=== PATIENT | female | born 1945 | race Hispanic/Latino ===

== ENCOUNTER 2018-11-17 13:37 | Outpatient (CLI) | payer MEDICARE, OTHER ==
--- NOTE | 2018-11-17 15:33 | ULT ---
LEFT BREAST SONOGRAM LIMITED: HISTORY: Left breast lump. FINDINGS: Sonographic evaluation of the lateral aspect left breast in the region of palpable concern reveals no solid or cystic masses. There are scattered fibroglandular densities. IMPRESSION: BIRADS category 2. Benign findings. Please see separate detailed report regarding diagnostic mammog rudolph performed on the same date. POS: [facility]
== END 2018-11-17 13:38 | disposition home or self-care (01) ==
LOC: BICMAMMO 13:37
PROVIDERS: ATTEND Family Medicine
DX: N63.20 Unspecified lump in the left breast, unspecified quadrant (principal); R92.1 Mammographic calcification found on diagnostic imaging of breast
CPT/HCPCS: 76642; 77066; G0279

== ENCOUNTER 2019-03-19 08:37 | Outpatient (CLI) | payer MEDICARE, OTHER ==
--- NOTE | 2019-03-19 09:51 | ULT ---
RENAL ULTRASOUND COMPLETE INCLUDING VASCULAR DUPLEX WITH COLOR AND SPECTRAL DOPPLER IMAGING: HISTORY: Essential hypertension. FINDINGS: The right kidney measures 8.8 x 4.1 x 4.1 cm. The left kidney measures 9.3 x 5.0 x 4.9 cm with a borderline prominent extrarenal pelvis but without evidence for acute hydronephrosis. No perinephric process. Vascular duplex with color and spectral Doppler imaging demonstrates increased peak systolic velocity in the left renal artery up to 151 cm/s. The right and left renal artery/aortic ratios are within n ormal limits with the left resistive index/aortic ratio being somewhat low. The right resistive indices are very low. Left resistive indices are borderline high. IMPRESSION: No evidence for significant renal mass or perinephric process. Slightly prominent left renal extrare nal pelvis without calyceal dilatation or acute hydronephrosis. Possible borderline left renal arter y stenosis. Consider followup nonemergent renal CTA/MRA for further assessment. POS: [facility]
== END 2019-03-19 08:38 | disposition home or self-care (01) ==
LOC: BICULT 08:37
PROVIDERS: ATTEND Family Medicine
DX: I10 Essential (primary) hypertension (principal)
CPT/HCPCS: 76700; 76770

== ENCOUNTER 2020-01-31 08:18 | Outpatient (CLI) | payer MEDICARE, OTHER ==
--- NOTE | 2020-01-31 08:56 | RAD ---
EXAM: 2 views of the left hip HISTORY: Left hip pain COMPARISON: None FINDINGS: 2 views of the left hip shows no evidence of acute fracture or dislocation. No degenerative changes are seen. No soft tissue swelling is present. IMPRESSION: No evidence of acute osseous abnormality.
--- NOTE | 2020-01-31 08:56 | RAD ---
EXAM: 2 views of the right hip HISTORY: Right hip pain COMPARISON: None FINDINGS: 2 views of the right hip shows no evidence of acute fracture or dislocation. No degenerativ e changes are seen. No soft tissue swelling is present. IMPRESSION: No evidence of acute osseous abnormality.
--- NOTE | 2020-01-31 09:00 | RAD ---
EXAM: 2 views of the right shoulder HISTORY: Shoulder pain COMPARISON: None FINDINGS: There is no evidence of acute fracture or dislocation. Joint space narrowing and ossified f ormation is seen in the acromioclavicular joint. No glenohumeral degenerative changes are seen.. The visualized thorax is unremarkable. IMPRESSION: Mild acromioclavicular osteoarthritis
--- NOTE | 2020-01-31 09:01 | RAD ---
EXAM: 2 views of the left shoulder HISTORY: Shoulder pain COMPARISON: None FINDINGS: There is no evidence of acute fracture or dislocation. Mild joint space narrowing and osteo phyte formation is seen in the acromioclavicular joint. No glenohumeral degenerative changes are seen.. The visualized thorax is unremarkable. IMPRESSION: Mild left AC osteoarthritis
== END 2020-01-31 08:19 | disposition home or self-care (01) ==
LOC: BICRAD 08:18
PROVIDERS: ATTEND Family Medicine
DX: M25.511 Pain in right shoulder (principal); M25.512 Pain in left shoulder; M25.552 Pain in left hip; M25.551 Pain in right hip; M19.012 Primary osteoarthritis, left shoulder; M19.011 Primary osteoarthritis, right shoulder

== ENCOUNTER 2020-05-26 10:16 | Outpatient (CLI) | payer MEDICARE, OTHER ==
--- NOTE | 2020-05-26 11:55 | MRI ---
MR the lumbar spine without contrast: 05/26/2020 History: Lumbar radiculopathy, back pain radiating into bilateral lower extremities with difficulty w alking COMPARISON: None. TECHNIQUE: Multiplanar multisequence MR images were obtained of lumbar spine without IV contrast FINDINGS: On the basis of 5 lumbar type vertebral bodies, conus medullaris terminates at theL1 level. Sagittal STIR imaging demonstrates a focal area of marrow edema within the left pedicle at L5, likely associated with facet disease. There is bilateral prominent facet hypertrophy at L4-5 with fluid within the facet joints at this level. T12-L1:There is disc space narrowing with disc desiccation. There is a central disc osteophyte comple x with mild central canal stenosis. There is no significant neural foraminal stenosis. L1-2:There is disc space narrowing with disc desiccation and anterior osteophyte formation and a disc osteophyte complex causing a mild degree of central canal stenosis. Mild bilateral facet hypertrophy with mild bilateral neural foraminal stenosis. L2-3:Mild bilateral facet hypertrophy and hypertrophy of the ligamentum flavum flavum. Disc space gonzalo rowing with disc desiccation and small disc bulge. No significant central canal or neural foraminal stenosis. L3-4:Mild bilateral facet hypertrophy. Disc desiccation with minimal disc bulge. No significant centr al canal stenosis. No significant neural foraminal stenosis on either side. L4-5:There is disc space narrowing with disc desiccation. Minimal anterolisthesis at L4-5 measures 5 mm. There is mild central canal stenosis and mild bilateral neural foraminal stenosis. L5-S1:Mild bilateral facet hypertrophy. No significant central canal or neural foraminal stenosis. Image retroperitoneal structures demonstrateno acute findings. IMPRESSION: There is multilevel degenerative change within the lumbar spine. Most significant findings are seen a t the L4-5 level where there is mild anterolisthesis and there is prominent facet hypertrophy with fluid within the facet joints. These facet changes can be seen on the basis of instability and thus, flexion and extension lateral radiographs of the lumbar spine are advised to assess for translation at the L4-5 level.
== END 2020-05-26 10:17 | disposition home or self-care (01) ==
LOC: BICMRI 10:16
PROVIDERS: ATTEND Family Medicine
DX: G95.9 Disease of spinal cord, unspecified (principal); M47.816 Spondylosis without myelopathy or radiculopathy, lumbar region; M43.16 Spondylolisthesis, lumbar region; M25.48 Effusion, other site
CPT/HCPCS: 72148

== ENCOUNTER 2020-06-05 10:11 | Outpatient (CLI) | payer MEDICARE, OTHER ==
--- NOTE | 2020-06-05 10:49 | RAD ---
EXAM: 4 views of the lumbosacral spine HISTORY: Low back pain COMPARISON: None FINDINGS: 4 views of the lumbosacral spine shows normal height and alignment of the vertebral bodies and without fracture or subluxation. Mild scoliotic curvature is likely secondary to degenerative change. Intervertebral disc space narrowing and osteophyte formation is seen throughout the lumbar sp ine. Alignment is unchanged with flexion and extension. The sacroiliac joints are unremarkable. Calcifications are seen in the aorta. IMPRESSION: Degenerative changes of lumbar spine with unchanged alignment with bending
== END 2020-06-05 10:12 | disposition home or self-care (01) ==
LOC: BICRAD 10:11
PROVIDERS: ATTEND Family Medicine
DX: M54.5 Low back pain (principal); M47.816 Spondylosis without myelopathy or radiculopathy, lumbar region
CPT/HCPCS: 72110

== ENCOUNTER 2020-08-21 09:01 | Outpatient (CLI) | payer MEDICARE, OTHER ==
--- NOTE | 2020-08-21 10:23 | MMO ---
Bilateral MAMMO Bilat Screen [facility]. CLINICAL HISTORY: Patient is 75 years old and is seen for screening. The patient has no family history of breast cancer. The patient has no personal history of cancer. The patient has a history of right Excisional Biopsy in 1979 - benign. VIEWS: The views performed were: bilateral craniocaudal with tomosynthesis and bilateral mediolateral oblique with tomosynthesis. FILMS COMPARED: The present examination has been compared to prior imaging studies performed at [facility] on 11/17/2018, and at [facility] on 06/18/2015, 07/28/2016 and 09/14/2017. This study has been interpreted with the assistance of computer-aided detection. MAMMOGRAM FINDINGS: There are scattered fibroglandular densities. Finding 1: There are stable benign appearing calcifications seen in both breasts. Finding 2: There are stable benign appearing densities seen in both breasts. There are no suspicious masses, suspicious calcifications, or new areas of architectural distortion. IMPRESSION: THERE IS NO MAMMOGRAPHIC EVIDENCE OF MALIGNANCY. A ROUTINE FOLLOW-UP MAMMOGRAM IN 1 YEAR IS RECOMMENDED. THE RESULTS OF THIS EXAM WERE SENT TO THE PATIENT. ACR BI-RADS Category 2 - Benign finding MAMMOGRAPHY NOTE: 1. A negative mammogram report should not delay a biopsy if a dominant of clinically suspicious mass is present. 2. Approximately 10% to 15% of breast cancers are not detected by mammography. 3. Adenosis and dense breasts may obscure an underlying neoplasm. Reported by: KIAN BELLO MD Electonically Signed: [id number]
== END 2020-08-21 09:02 | disposition home or self-care (01) ==
LOC: BICMAMMO 09:01
PROVIDERS: ATTEND Family Medicine
DX: Z12.31 Encounter for screening mammogram for malignant neoplasm of breast (principal); Z91.89 Other specified personal risk factors, not elsewhere classified
CPT/HCPCS: 77063; 77067

== ENCOUNTER 2021-06-29 10:16 | Outpatient (CLI) | payer MEDICARE, OTHER | END 2021-06-29 10:17 | disposition home or self-care (01) | LOC: SCSMRI 10:16 | PROVIDERS: ATTEND Family Medicine | DX: M51.16 Intervertebral disc disorders with radiculopathy, lumbar region (principal); M79.2 Neuralgia and neuritis, unspecified; M48.061 Spinal stenosis, lumbar region without neurogenic claudication; M47.812 Spondylosis without myelopathy or radiculopathy, cervical region | CPT/HCPCS: 72141; 72148 ==

== ENCOUNTER 2021-08-25 14:47 | Outpatient (CLI) | payer MEDICARE, OTHER | END 2021-08-25 14:48 | disposition home or self-care (01) | LOC: BICMRI 14:47 | PROVIDERS: ATTEND Anesthesiology Pain Medicine | DX: M48.04 Spinal stenosis, thoracic region (principal); M47.814 Spondylosis without myelopathy or radiculopathy, thoracic region | CPT/HCPCS: 72146 ==

== ENCOUNTER 2021-10-02 09:05 | Outpatient (CLI) | payer MEDICARE, OTHER | END 2021-10-02 09:06 | disposition home or self-care (01) | LOC: BICMAMMO 09:05 | PROVIDERS: ATTEND Family Medicine | DX: Z12.31 Encounter for screening mammogram for malignant neoplasm of breast (principal) | CPT/HCPCS: 77063; 77067 ==

== ENCOUNTER 2022-07-30 09:13 | Outpatient (CLI) | payer MEDICARE, OTHER | END 2022-07-30 09:14 | disposition home or self-care (01) | LOC: BICRAD 09:13 | PROVIDERS: ATTEND Family Medicine | DX: R07.82 Intercostal pain (principal); S42.212A Unspecified displaced fracture of surgical neck of left humerus, initial encounter for closed fracture; S42.202A Unspecified fracture of upper end of left humerus, initial encounter for closed fracture; M81.0 Age-related osteoporosis without current pathological fracture; I70.0 Atherosclerosis of aorta; M19.019 Primary osteoarthritis, unspecified shoulder; M47.819 Spondylosis without myelopathy or radiculopathy, site unspecified ==

== ENCOUNTER 2022-09-29 09:25 | Outpatient (CLI) | payer MEDICARE, OTHER | END 2022-09-29 09:26 | disposition home or self-care (01) | LOC: BICRAD 09:25 | PROVIDERS: ATTEND Family Medicine | DX: M25.512 Pain in left shoulder (principal); M54.6 Pain in thoracic spine; M47.814 Spondylosis without myelopathy or radiculopathy, thoracic region; N30.90 Cystitis, unspecified without hematuria | CPT/HCPCS: 72072; 87086 ==

== ENCOUNTER 2023-06-10 10:29 | Outpatient (CLI) | payer MEDICARE, OTHER | END 2023-06-10 10:30 | disposition home or self-care (01) | LOC: BICMRI 10:29 | PROVIDERS: ATTEND Family Medicine | DX: M47.812 Spondylosis without myelopathy or radiculopathy, cervical region (principal); G44.89 Other headache syndrome; I67.89 Other cerebrovascular disease | CPT/HCPCS: 70551; 72141 ==

== ENCOUNTER 2023-12-22 09:26 | Outpatient (CLI) | payer MEDICARE, OTHER | END 2023-12-22 09:27 | disposition home or self-care (01) | LOC: BICMAMMO 09:26 | PROVIDERS: ATTEND Family Medicine | DX: Z12.31 Encounter for screening mammogram for malignant neoplasm of breast (principal); Z91.89 Other specified personal risk factors, not elsewhere classified | CPT/HCPCS: 77063; 77067 ==

== ENCOUNTER 2024-09-04 05:02 | Inpatient (IN) | payer MEDICARE, OTHER ==
[2024-09-04] MEDS ORDERED: Bisacodyl 5 MG TAB PO PRN (15:28)
[2024-09-04] MEDS ORDERED: Ondansetron ODT 4 MG TAB PO PRN (15:28)
[2024-09-04] MEDS ORDERED: Dextrose 50% Abboject 50 ML SYRINGE SLOW IVP PRN (15:28)
[2024-09-04] MEDS ORDERED: Ondansetron PF 4 MG/2 ML Vial IVP PRN (15:28)
[2024-09-04] MEDS ORDERED: Dextrose 5% in Water 1,000 ML IV PRN (15:28)
[2024-09-04] MEDS ORDERED: Acetaminophen 650 MG Suppository PR PRN (15:28)
[2024-09-04] MEDS ORDERED: Glucagon 1 MG/ML KIT IM PRN (15:28)
[2024-09-04 15:44] VITALS: BMI 25.0
[2024-09-04 17:02] LABS: Anion Gap 30 mmol/L (10-20); BUN (Urea Nitrogen) 33 mg/dL (9.8-20.1); Calc. Creatinine Clearance 30 mL/min (70-130); Calcium 8.6 mg/dL (7.8-10.44); Carbon Dioxide 8 mmol/L (23-31); Chloride 108 mmol/L (98-107); Estimated GFR 39; Glucose 176 mg/dL (83-110); Magnesium 2.5 mg/dL (1.6-2.6); Potassium 2.9 mmol/L (3.5-5.1); Sodium 143 mmol/L (136-145)
[2024-09-04] MEDS: hydrALAZINE 20 MG/ML VIAL SLOW IVP PRN (17:06)
[2024-09-04] MEDS: Lactated Ringer's 1,000 ML IV SCH (17:10)
[2024-09-04] MEDS: Potassium Chloride 20 MEQ in Premix 1 BAG IVPB SCH (18:06)
[2024-09-04] MEDS: Famotidine/PF 20 mg/2ml Vial SLOW IVP SCH (20:44)
[2024-09-04] MEDS: Heparin 5,000 UNITS/ML VIAL SC SCH (20:59)
[2024-09-04] MEDS ORDERED: Labetalol HCl 100 MG/20 ML VIAL SLOW IVP SCH (21:15)
[2024-09-04] MEDS: Insulin Lispro 100 UNIT/ML 10 ML VIAL SC PRN (21:30)
[2024-09-04 22:18] LABS: Anion Gap 29 mmol/L (10-20); BUN (Urea Nitrogen) 35 mg/dL (9.8-20.1); Calc. Creatinine Clearance 29 mL/min (70-130); Calcium 8.4 mg/dL (7.8-10.44); Carbon Dioxide Less than 8 mmol/L (23-31); Chloride 108 mmol/L (98-107); Estimated GFR 37; Glucose 310 mg/dL (83-110); Potassium 3.3 mmol/L (3.5-5.1); Sodium 140 mmol/L (136-145)
[2024-09-04] MEDS: Sodium Bicarbonate 150 MEQ in Dextrose 5% in Water 1,000 ML IV SCH (23:05)
[2024-09-05 04:37] LABS: #Basophils 0.03 10x3/uL (0.0-0.2); %Basophils 0.2 % (0.0-1.0); %Eosinophils 1.5 % (0.0-10.0); %Lymphocytes 12.9 % (21.0-51.0); %Monocytes 7.9 % (0.0-10.0); %Neutrophils 76.7 % (42.0-75.0); Hematocrit 32.8 % (36.0-47.0); Hemoglobin 9.6 g/dL (12.0-16.0); Mean Corpuscular HGB CONC 29.3 g/dL (32.0-36.0); Mean Corpuscular Volume 78.5 fL (78.0-98.0); Mean Platelet Volume 10.3 fL (7.4-10.4); Platelet Count 426 10x3/uL (130-400); RBC Distribution Width 17.8 % (11.5-14.5); Red Blood Cell (RBC) Count 4.18 mill/uL (4.20-5.40)
[2024-09-05 05:29] LABS: ALT (SGPT) 18 U/L (8-55); AST (SGOT) 18 U/L (5-34); Albumin 2.8 g/dL (3.4-4.8); Alkaline Phosphatase 62 U/L (40-110); Anion Gap 23 mmol/L (10-20); BUN (Urea Nitrogen) 35 mg/dL (9.8-20.1); Bilirubin, Total 0.8 mg/dL (0.2-1.2); Calc. Creatinine Clearance 31 mL/min (70-130); Calcium 8.6 mg/dL (7.8-10.44); Carbon Dioxide 10 mmol/L (23-31); Chloride 109 mmol/L (98-107); Estimated GFR 41; Globulin 3.5 g/dL (2.4-3.5); Glucose 256 mg/dL (83-110); Potassium 3.3 mmol/L (3.5-5.1); Protein, Total 6.3 g/dL (5.8-8.1); Sodium 139 mmol/L (136-145)
[2024-09-05] MEDS: cefTRIAXone\\ROCEPHIN 1 GM in Sodium Chloride 0.9% 100 ML IVPB SCH (08:49)
[2024-09-05] MEDS ORDERED: Sodium Chloride 0.9% 1,000 ML IV SCH (09:45)
[2024-09-05] MEDS ORDERED: Potassium Chloride 20 MEQ in Premix 1 BAG IVPB SCH (10:00)
[2024-09-05] MEDS ORDERED: Electrolyte Replacement Protocol 1 EACH IVPB PRN (11:19)
[2024-09-05] MEDS ORDERED: Dextrose 50% Abboject 50 ML SYRINGE SLOW IVP PRN (11:19)
[2024-09-05] MEDS ORDERED: Dextrose 5 %-0.45 % NaCl 1,000 ML IV PRN (11:19)
[2024-09-05] MEDS ORDERED: NS 0.9% w/ 20 MEQ KCL 1,000 ML IV PRN (11:19)
[2024-09-05] MEDS ORDERED: Sodium Chloride 0.9% 1,000 ML IV PRN ×3 (11:19)
[2024-09-05] MEDS ORDERED: Potassium Chloride 20 MEQ TAB PO SCH (11:30)
[2024-09-05] MEDS ORDERED: Electrolyte Replacement Protocol FS PRN (11:30)
[2024-09-05] MEDS: Potassium Chloride 20 MEQ TAB PO SCH ×2 (12:14→17:15)
[2024-09-05] MEDS: Insulin Regular, Human 100 UNIT/ML 10 ML VIAL IVP SCH (12:28)
[2024-09-05 13:00] LABS: Anion Gap 20 mmol/L (10-20); BUN (Urea Nitrogen) 30 mg/dL (9.8-20.1); Calc. Creatinine Clearance 37 mL/min (70-130); Calcium 7.4 mg/dL (7.8-10.44); Carbon Dioxide 23 mmol/L (23-31); Chloride 98 mmol/L (98-107); Estimated GFR 50; Glucose 636 mg/dL (83-110); Magnesium 2.2 mg/dL (1.6-2.6); Phosphorus 1.6 mg/dL (2.3-4.7); Potassium 2.4 mmol/L (3.5-5.1); Sodium 139 mmol/L (136-145)
[2024-09-05] MEDS: INSULIN REGULAR IN 0.9 % NACL 100 ML IVPB SCH (14:07)
[2024-09-05] MEDS: Sodium Chloride 0.9% 1,000 ML IV PRN (14:12)
[2024-09-05 16:05] LABS: Anion Gap 20 mmol/L (10-20); BUN (Urea Nitrogen) 29 mg/dL (9.8-20.1); Calc. Creatinine Clearance 39 mL/min (70-130); Calcium 8.1 mg/dL (7.8-10.44); Carbon Dioxide 15 mmol/L (23-31); Chloride 110 mmol/L (98-107); Estimated GFR 53; Glucose 250 mg/dL (83-110); Potassium 2.7 mmol/L (3.5-5.1); Sodium 142 mmol/L (136-145)
[2024-09-05] MEDS: NS 0.9% w/ 20 MEQ KCL 1,000 ML IV PRN (16:14)
[2024-09-05] MEDS: D5 1/2 NS w/20 mEq KCL 1,000 ML IV PRN (17:23)
[2024-09-05] MEDS: Sodium Phosphate 30 MMOL in Sodium Chloride 0.9% 250 ML 250 ML IVPB SCH (18:17)
[2024-09-05 19:09] LABS: Magnesium 2.1 mg/dL (1.6-2.6)
[2024-09-05 19:33] LABS: Anion Gap 14 mmol/L (10-20); BUN (Urea Nitrogen) 23 mg/dL (9.8-20.1); Calc. Creatinine Clearance 52 mL/min (70-130); Calcium 7.5 mg/dL (7.8-10.44); Carbon Dioxide 18 mmol/L (23-31); Chloride 114 mmol/L (98-107); Estimated GFR 75; Glucose 180 mg/dL (83-110); Potassium 3.4 mmol/L (3.5-5.1); Sodium 143 mmol/L (136-145)
[2024-09-05] MEDS: Potassium Chloride 20 MEQ in Premix 1 BAG IVPB SCH (20:27)
[2024-09-05] MEDS: Atorvastatin Calcium 20 MG TAB PO SCH (20:27)
[2024-09-05] MEDS: Losartan 25 MG TAB PO SCH (20:27)
[2024-09-05] MEDS: Ondansetron PF 4 MG/2 ML Vial IVP PRN (20:28)
[2024-09-05] MEDS: Acetaminophen 325 MG TAB PO PRN (22:00)
[2024-09-06 04:36] LABS: #Basophils Less than 0.03 10x3/uL (0.0-0.2); %Basophils 0.2 % (0.0-1.0); %Eosinophils 0.5 % (0.0-10.0); %Lymphocytes 18.5 % (21.0-51.0); %Monocytes 7.7 % (0.0-10.0); %Neutrophils 72.6 % (42.0-75.0); Hematocrit 25.2 % (36.0-47.0); Hemoglobin 7.8 g/dL (12.0-16.0); Mean Corpuscular Hemoglobin 22.9 pg (27.0-31.0); Mean Corpuscular Volume 74.1 fL (78.0-98.0); Platelet Count 331 10x3/uL (130-400); RBC Distribution Width 17.4 % (11.5-14.5)
[2024-09-06 04:45] LABS: Magnesium 1.8 mg/dL (1.6-2.6)
[2024-09-06 04:48] LABS: Anion Gap 10 mmol/L (10-20); BUN (Urea Nitrogen) 14 mg/dL (9.8-20.1); Calc. Creatinine Clearance 68 mL/min (70-130); Calcium 7.1 mg/dL (7.8-10.44); Carbon Dioxide 24 mmol/L (23-31); Chloride 110 mmol/L (98-107); Estimated GFR 90; Glucose 193 mg/dL (83-110); Potassium 3.4 mmol/L (3.5-5.1); Sodium 141 mmol/L (136-145)
[2024-09-06 05:23] LABS: Anisocytosis SLIGHT = 6-15 cells HPF (0-5); Band 1 % (5-11); Hypochromia SLIGHT = 6-15 cells HPF (0-5); Lymphocytes 19 % (21-51); Macrocytosis SLIGHT = 6-15 cells HPF (0-5); Monocytes 5 % (0-10); Neutrophil 75 % (42-75); Nucleated RBC (Manual Ct) 1 % (0); Platelet Adequacy Comment Platelets Normal; Polychromasia SLIGHT = 2-3 cells HPF (0-2)
[2024-09-06] MEDS: Insulin Glargine 30 UNITS/0.3 ML VIAL SC SCH (06:09)
[2024-09-06] MEDS: Magnesium 2 GM/50 ML(in water) 2 GM in Premix 1 BAG IVPB SCH (07:53)
[2024-09-06] MEDS: Insulin Lispro 100 UNIT/ML 10 ML VIAL SC SCH (07:55)
[2024-09-06] MEDS: Insulin Lispro 100 UNIT/ML 10 ML VIAL SC PRN (07:55)
[2024-09-06] MEDS: Potassium Phosphate 30 MMOL in Sodium Chloride 0.9% 250 ML 250 ML IVPB SCH (07:58)
[2024-09-06] MEDS: Empagliflozin 10 MG TAB PO SCH (07:59)
[2024-09-06] MEDS: Losartan 25 MG TAB PO SCH (07:59)
[2024-09-06] MEDS: FLU (Fluad Triv) TS24-25 (65UP)/MF59C/PF 45 MCG/0.5 ML Syringe IM ONE (08:28)
[2024-09-06] MEDS: Prochlorperazine Edisylate 10 MG in Sodium Chloride 0.9% 50 ML IVPB SCH (10:16)
[2024-09-06 12:53] VITALS: BMI 27.3
[2024-09-06 17:29] LABS: Phosphorus 2.2 mg/dL (2.3-4.7)
[2024-09-06 19:00] LABS: Magnesium 2.5 mg/dL (1.6-2.6); Phosphorus 2.3 mg/dL (2.3-4.7)
[2024-09-06] MEDS: Senokot S 8.6-50 MG TAB PO PRN (21:39)
[2024-09-07 05:51] LABS: #Basophils 0.03 10x3/uL (0.0-0.2); %Basophils 0.4 % (0.0-1.0); %Lymphocytes 28.1 % (21.0-51.0); %Monocytes 7.2 % (0.0-10.0); %Neutrophils 62.7 % (42.0-75.0); Hematocrit 26.3 % (36.0-47.0); Mean Corpuscular HGB CONC 30.4 g/dL (32.0-36.0); Mean Corpuscular Hemoglobin 22.9 pg (27.0-31.0); Mean Corpuscular Volume 75.1 fL (78.0-98.0); Mean Platelet Volume 9.9 fL (7.4-10.4); Platelet Count 299 10x3/uL (130-400); RBC Distribution Width 17.7 % (11.5-14.5)
[2024-09-07 06:09] LABS: Anion Gap 11 mmol/L (10-20); BUN (Urea Nitrogen) 11 mg/dL (9.8-20.1); Calc. Creatinine Clearance 79 mL/min (70-130); Calcium 7.6 mg/dL (7.8-10.44); Carbon Dioxide 25 mmol/L (23-31); Chloride 104 mmol/L (98-107); Estimated GFR 93; Glucose 95 mg/dL (83-110); Potassium 3.9 mmol/L (3.5-5.1); Sodium 136 mmol/L (136-145)
[2024-09-07 06:10] LABS: Magnesium 2.3 mg/dL (1.6-2.6); Phosphorus 2.1 mg/dL (2.3-4.7)
[2024-09-07] MEDS: Prochlorperazine Maleate 5 MG TAB PO PRN (10:39)
[2024-09-07] MEDS: Senokot S 8.6-50 MG TAB PO SCH (10:39)
[2024-09-07] MEDS: Amlodipine 10 MG TAB PO SCH ×2 (10:41→10:43)
[2024-09-07] MEDS: Insulin Glargine 30 UNITS/0.3 ML VIAL SC SCH ×2 (10:42→11:09)
[2024-09-07 10:50] LABS: Troponin I 0.085 ng/mL (< 0.028)
[2024-09-07] MEDS: Prochlorperazine Maleate 5 MG TAB PO SCH (11:10)
[2024-09-07] MEDS: Calcitriol 0.25 MCG CAP PO SCH (13:37)
[2024-09-07] MEDS: Potassium Phosphate 30 MMOL in Sodium Chloride 0.9% 250 ML 250 ML IVPB SCH (15:43)
[2024-09-07 18:33] LABS: Troponin I 0.077 ng/mL (< 0.028)
[2024-09-07 18:36] LABS: Phosphorus 2.7 mg/dL (2.3-4.7)
[2024-09-07] MEDS: Famotidine/PF 20 mg/2ml Vial SLOW IVP SCH (22:31)
[2024-09-08 05:44] LABS: #Basophils 0.03 10x3/uL (0.0-0.2); %Basophils 0.3 % (0.0-1.0); %Eosinophils 1.1 % (0.0-10.0); %Lymphocytes 21.4 % (21.0-51.0); %Monocytes 8.1 % (0.0-10.0); %Neutrophils 68.1 % (42.0-75.0); Hematocrit 26.3 % (36.0-47.0); Hemoglobin 8.2 g/dL (12.0-16.0); Mean Corpuscular HGB CONC 31.2 g/dL (32.0-36.0); Mean Corpuscular Volume 73.9 fL (78.0-98.0); Mean Platelet Volume 10.2 fL (7.4-10.4); Platelet Count 303 10x3/uL (130-400); RBC Distribution Width 17.5 % (11.5-14.5); Red Blood Cell (RBC) Count 3.56 mill/uL (4.20-5.40)
[2024-09-08 05:59] LABS: Anion Gap 12 mmol/L (10-20); BUN (Urea Nitrogen) 13 mg/dL (9.8-20.1); Calc. Creatinine Clearance 76 mL/min (70-130); Calcium 7.7 mg/dL (7.8-10.44); Carbon Dioxide 25 mmol/L (23-31); Chloride 100 mmol/L (98-107); Estimated GFR 92; Glucose 120 mg/dL (83-110); Potassium 3.6 mmol/L (3.5-5.1); Sodium 133 mmol/L (136-145)
[2024-09-08 15:51] VITALS: BP 132/71
[2024-09-08 15:56] VITALS: TEMP 99.3
== END 2024-09-08 16:35 | disposition home or self-care (01) | DRG 637 ==
LOC: OBS 14:02 → OBSVTOIN 09-05 09:49 → IMCU/EMU 09-05 13:51 → MSONC 09-06 12:23
PROVIDERS: ADMIT Family Medicine; ATTEND Internal Medicine
DX: E11.10 Type 2 diabetes mellitus with ketoacidosis without coma (principal); I21.A1 Myocardial infarction type 2; N17.9 Acute kidney failure, unspecified; N39.0 Urinary tract infection, site not specified; I10 Essential (primary) hypertension; E78.5 Hyperlipidemia, unspecified; D64.9 Anemia, unspecified; M19.90 Unspecified osteoarthritis, unspecified site; K52.9 Noninfective gastroenteritis and colitis, unspecified; E87.6 Hypokalemia; E83.39 Other disorders of phosphorus metabolism; Z90.49 Acquired absence of other specified parts of digestive tract
CPT/HCPCS: 36415; 36416; 80048; 80053; 82010; 82306; 83735; 84100; 84484; 85025; 93005; 93010; 96372; 96374; 96375; 96376; 97139; G0378; J0360; J0696; J0780; J1644; J1815; J2405; J3475; J3480; J3490; J7030; J7050; J7070; Q0164

== ENCOUNTER 2025-07-18 08:05 | Outpatient (CLI) | payer MEDICARE, OTHER | END 2025-07-18 08:06 | disposition home or self-care (01) | LOC: BICMAMMO 08:05 → ULT 08:06 | PROVIDERS: ATTEND Family Medicine | DX: Z12.31 Encounter for screening mammogram for malignant neoplasm of breast (principal); N95.9 Unspecified menopausal and perimenopausal disorder; N39.41 Urge incontinence; M85.851 Other specified disorders of bone density and structure, right thigh; M85.852 Other specified disorders of bone density and structure, left thigh; N13.30 Unspecified hydronephrosis; N39.43 Post-void dribbling; Z85.038 Personal history of other malignant neoplasm of large intestine; Z91.89 Other specified personal risk factors, not elsewhere classified | CPT/HCPCS: 76770; 77063; 77067; 77080 ==